=== PATIENT | male | born 1975 | race Caucasian/White ===

== ENCOUNTER 2020-05-28 08:02 | Emergency (ER) | payer MEDICAID, MEDICARE, OTHER ==
[~2020-05-28] VITALS: Ht 180.3 cm; Wt 103.3 kg
[2020-05-28 08:06] VITALS: BP 159/97
[2020-05-28 08:53] LABS: BASOPHILS % (AUTO) 1 % (0-1); EOSINOPHILS % (AUTO) 0 % (1-7); LYMPHOCYTES % (AUTO) 6 % (22-44); MEAN CORPUSCULAR HEMOGLOBIN 32.1 pg (27.5-34.5); MEAN PLATELET VOLUME 6.8 fL (7.4-10.4); MONOCYTES % (AUTO) 5 % (2-9); NEUTROPHILS % (AUTO) 88 % (42-75); PLATELET COUNT 278 x10^3/uL (130-400); RED BLOOD COUNT 4.43 x10^6/uL (4.38-5.82); RED CELL DISTRIBUTION WIDTH 12.9 % (9.4-14.8)
[2020-05-28 08:54] LABS: MD NO
[2020-05-28 09:07] LABS: ALANINE AMINOTRANSFERASE 39 U/L (12-78); ALBUMIN 4.3 g/dL (3.4-5.0); ANION GAP 9 mmol/L (5-15); CALCIUM 8.9 mg/dL (8.5-10.1); CHLORIDE 107 mmol/L (98-107); CREATININE 1.07 mg/dL (0.7-1.3); SALICYLATE LEVEL 1.8 mg/dL (2.8-20.0)
[2020-05-28 09:09] LABS: ALKALINE PHOSPHATASE 93 U/L (45-117); BILIRUBIN,TOTAL 0.6 mg/dL (0.2-1.0); TOTAL PROTEIN 8.2 g/dL (6.4-8.2)
--- NOTE | 2020-05-28 09:34 | NUR ---
BLUEPRINT CLERK: PT RINGING TO DOOR TO COME BACK TO THE ED SEVERAL TIMES, EXPLAINED WAIT TIME. PT THEN SAT ON FLOOR CODE 250 CALLED, PT PLACED BACK IN CHAIR, STATES HE HAS CP, EKG ORDERED AND BEING COMPLETED. EXPLAINED THAT THERE IS NO ROOM AVAILABLE AT THIS TIME. PT YELLED AT THIS RN, EXPLAINED HE CAN LEAVE IF CONTINOUS TO YELL.
--- NOTE | 2020-05-28 09:58 | NUR ---
DRY WALL PLASTERER: PT TO ROOM FROM LOBBY
--- NOTE | 2020-05-28 10:05 | NUR ---
SAUNDRA GAITAN AFTER PT LAID HIMSELF DOWN ON SIDEWALK AND ASKED [facility] TO CALL AMBULANCE. PER PT, HE WAS GIVEN A CIGARETTE BY STRANGERS LAST NIGHT "THAT WAS DIPPED IN SOMETHING... THEY WERE BRAGGING ABOUT IT" PT C/O ANXIETY. PT REPORTS ALL SYMPTOMS BEGAN AFTER THESE INDIVIDUALS TOLD HIM THE CIGARETTE WAS LACED. DENIES PAIN. Ecg in triage hr 105 "It paulina fel like I did meth. but not exactly."
--- NOTE | 2020-05-28 10:16 | NUR ---
PT STATES "I DON'T REALLY WANT TO BE EXAMINED RIGHT NOW" "I'M TOO UPSET". STATES HE LIVES IN A TENT AND "THIS LADY AND A JONATHAN GAVE ME A CIGARETTE, AND THEN THEY TALKED ABOUT KILLING ME" "SHE SAID SHE DIPPED THE CIGARETTE" IN UNKNOWN SUBSTANCE. C/O NOT FEELING GOOD: HIGH HEART RATE (HR CURRENTLY 97). C/O FEELING ANXIOUS.
[2020-05-28] MEDS ORDERED: GABAPENTIN (10:20)
[2020-05-28] MEDS ORDERED: COREG (10:20)
[2020-05-28] MEDS ORDERED: HTN (10:20)
--- NOTE | 2020-05-28 10:22 | NUR ---
PT NOTIFIED OF NEED FOR URINE SPECIMEN; WATER PROVIDED.
--- NOTE | 2020-05-28 10:35 | NUR ---
NO URINE SPECIMEN PROVIDED. PT REMINDED, AGAIN, OF NEED FOR URINE.
[2020-05-28] MEDS ORDERED: LORazepam 1MG TABLET PO ONE (11:00)
[2020-05-28] MEDS ORDERED: LORazepam 1MG TABLET ONE (11:08)
--- NOTE | 2020-05-28 11:11 | NUR ---
ATIVAN GIVEN PER EMAR
--- NOTE | 2020-05-28 11:12 | NUR ---
PT NOTIFIED OF PENDING DC. PT REFUSING DC. STATES "I DON'T EVEN WANT HELP, BUT I WANT TO GET HELP". DISCUSSED MENTAL HEALTH FOLLOW UP WITH [facility] (LISTED ON DC INSTRUCTIONS).
--- NOTE | 2020-05-28 11:20 | NUR ---
PT ESCORTED OFF PREMISES PER SECURITY
== END 2020-05-28 11:23 | disposition home or self-care (01) ==
LOC: ED 10:07
DX: F41.1 Generalized anxiety disorder (principal); R00.0 Tachycardia, unspecified; R94.31 Abnormal electrocardiogram [ECG] [EKG]; F17.210 Nicotine dependence, cigarettes, uncomplicated
CPT/HCPCS: 36415; 80053; 80299; 80320; 80329; 85025; 93005; 99284; 99406; G0480